=== PATIENT | male | born 1960 | race Two or more races ===

== ENCOUNTER 2024-08-09 13:46 | Emergency (ER) | payer OTHER, SELFPAY ==
--- NOTE | ~2024-08-09 | XR_ITS ---
XR chest 1V portable Ordering provider: Camden Dejesus MD History: 64 years Male with . SVT, PALPITATIONS, TACHYCARDIA, HX SC . Comparison: None. FINDINGS: MEDIASTINUM: The cardiac silhouette is not enlarged. Congestive wilda. LUNGS: No infiltrates, effusions or pneumothorax. Interstitial changes seen bilaterally more on the l eft side. OTHER: No free air under the diaphragm. Degenerative changes of the spine. IMPRESSION: No definite acute cardiopulmonary pathology. Reviewed, dictated and finalized at location A. [employer]
[2024-08-09 13:46] VITALS: BP 148/84; PULSE 85; RESP 18; TEMP 36.6; O2SAT 98
--- NOTE | 2024-08-09 14:19 | ECG_ITS ---
Test Date: 2024-08-09 13:52:23 Measurements Intervals [place] Rate: 85 P: 209 [place]: 146 QRS: -45 QRSD: 86 T: 113 QT: 365 QTc: 435 Interpretive Statements SINUS RHYTHM WITH FIRST DEGREE AV BLOCK LEFT AXIS DEVIATION CANNOT R/O SEPTAL INFARCT, AGE INDETERMINATE INFERIOR INFARCT, AGE INDETERMINATE ST-T WAVE ABNORMALITY IN [facility] LATERAL LEADS- CONSIDER ISCHEMIA BASELINE ARTIFACT- I, II, III, AVR, AVL, AVF, V1, V4-V6 ABNORMAL ECG No previous ECG available for comparison Electronically Signed On 08-09-2024 14:27:46 [employer] by Cj Parker D.O.
--- NOTE | 2024-08-09 14:40 | ED_ITS ---
HPI - General Adult General Chief complaint: Arrhythmia/Palpitations Stated complaint: Resolved SVT History of Present Illness HPI narrative: 64-year-old male present to the emergency department for evaluation for episode rapid heart rate. Patient is a long-distance dedicated local truck driver and is from the [facility]. Patient is driving from [place] to [place]. Patient states while he was driving he had onset of rapid heart rate and did have some chest pressure with this. Patient did call EMS and when EMS arrived to scene they found his heart rate was in the 180s. And was in SVT. Patient was treated with 6 of Adenocard and patient did return back to normal sinus rhythm. Patient reports as soon as his heart rate decreased he had no more chest pressure or chest tightness. Patient denies any complaints in the emergency department. Patient does have history of type 2 diabetes and does have a prior history an [place] in 2012 when he to stents. Patient reports last year he did have a stress test that he passed. Related Data Allergies Allergy/AdvReac Type Severity Reaction Status Date / Time codeine AdvReac Itching Verified 08/09/24 13:53 Review of Systems Review of Systems: All systems reviewed & are unremarkable except as noted in HPI and below Exam Narrative: APPEARANCE: Well appearing, no pain, no distress, well-nourished. HEAD: normocephalic, atraumatic. EYES: PERRLA/EOMI, conjunctivae clear. NOSE: Normal no drainage EARS:TMS clear with good light reflex. THROAT: Pharynx clear, no exudate. NECK: Supple. No adenopathy, no masses. RESPIRATORY: Airway patent, respirations nonlabored. Clear to auscultation bilaterally, no rales, rhonchi, wheezing. CARDIOVASCULAR: Regular rate and rhythm without murmurs rubs or gallops. ABDOMINAL: Soft, nontender, nondistended, normal bowel sounds MUSCULOSKELETAL: Moves all extremities. Strength/ROM intact, No edema, No calf tenderness. NEURO: Alert. Cranial nerves II through XII intact. Good gait. Good coordination SKIN: Warm, dry. Normal Color Course Vital Signs Vital signs: Vital Signs Temperature 97.9 F 08/09/24 13:46 Pulse Rate 85 08/09/24 13:46 Respiratory Rate 18 08/09/24 13:46 Blood Pressure 148/84 H 08/09/24 13:46 Pulse Oximetry 98 08/09/24 13:46 Oxygen Delivery Room Air 08/09/24 13:46 Temperature 98 F 08/09/24 16:00 Pulse Rate 71 08/09/24 16:00 Respiratory Rate 16 08/09/24 16:00 Blood Pressure 138/88 08/09/24 16:00 Pulse Oximetry 98 08/09/24 16:00 Oxygen Delivery Room Air 08/09/24 13:46 Medical Decision Making MDM Narrative Medical decision making narrative: 64-year-old male presenting to the emergency department for evaluation for episode of rapid heart rate which was found to be SVT. Patient was treated in the field and upon arrival emergency department patient had no complaints. Patient is afebrile with no leukocytosis and hemoglobin of 16.1, INR 0.9, no a cute abnormalities on the CMP chest x-ray shows no acute cardiopulmonary abnormality. Patient has remained in normal sinus rhythm since arrival to the emergency department. Patient denies any chest pain or shortness of breath. Patient was encouraged of close follow-up with his primary care physician. All questions concerns were addressed. Differential Diagnosis Differential Diagnosis: ACS, mi, SVT, AFib Vital Signs Vital Signs: Vital Signs Temperature 97.9 F 08/09/24 13:46 Pulse Rate 85 08/09/24 13:46 Respiratory Rate 18 08/09/24 13:46 Blood Pressure 148/84 H 08/09/24 13:46 Pulse Oximetry 98 08/09/24 13:46 Oxygen Delivery Room Air 08/09/24 13:46 Temperature 98 F 08/09/24 16:00 Pulse Rate 71 08/09/24 16:00 Respiratory Rate 16 08/09/24 16:00 Blood Pressure 138/88 08/09/24 16:00 Pulse Oximetry 98 08/09/24 16:00 Oxygen Delivery Room Air 08/09/24 13:46 Lab Data Lab results reviewed: Yes I reviewed the patient's lab results. 08/09/24 14:56 08/09/24 14:56 Labs: Lab Results 08/09/24 Range/Units 14:56 WBC 6.6 (4.5-10.0) K/mm3 RBC 5.05 (4.6-6.20) M/mm3 Hgb 16.1 (14.0-18.0) g/dL Hct 46.9 (42.0-52.0) % MCV 92.9 (80-100) fl MCH 31.9 (26-34) pg MCHC 34.3 (32-36) g/dl RDW 13.0 (11.5-14.5) % Plt Count 180 (150-375) k/mm3 MPV 9.6 (7.4-10.4) fl Immature Gran % (Auto) 0.5 (0-0.5) % Neut % (Auto) 63.1 (45.5-73.1) % Lymph % (Auto) 27.8 (18.3-44.2) % [place] % (Auto) 7.5 (2.6-8.5) % Eos % (Auto) 0.8 (0-4.4) % Baso % (Auto) 0.3 (0.2-1.2) % Lymph # (Auto) 1.84 (0.9-3.2) K/mm3 [place] # (Auto) 0.5 (0.1-0.6) K/mm3 Eos # (Auto) 0.1 (0-0.3) K/mm3 Baso # (Auto) 0.0 (0.0-0.1) K/mm3 Abs Immat Gran (auto) 0.03 (0.00-0.031) K/mm3 Absolute Neuts (auto) 4.2 (1.3-6.7) K/mm3 Absolute Nucleated RBC 0.000 (0.0-0.012) K/mm3 Nucleated RBC % 0.0 (0.0-0.2) % PT 13.1 (11.1-14.7) Seconds INR 0.9 APTT 26.6 (22.3-36.8) Seconds Sodium 139 (137-145) mmol/L Potassium 4.5 (3.4-5.0) mmol/L Chloride 103 (98-107) mmol/L Carbon Dioxide 27 (22-30) mmol/L Anion Gap 9 (4-12) mmol/L BUN 15 (9-20) mg/dL Creatinine 0.70 (0.7-1.3) mg/dL Estim Creat Clear Calc 114 ml/min Estimated GFR > 60 (59 - ) Glucose 149 H (65-110) mg/dL Calcium 9.2 (8.4-10.2) mg/dL Total Bilirubin 1.1 (0.2-1.3) mg/dL AST 22 (17-59) U/L ALT 20 (6-50) U/L Alkaline Phosphatase 77 (38-126) U/L Total Protein 8.0 (6.3-8.2) g/dL Albumin 4.5 (3.5-5.1) g/dL Imaging Data Radiologist's impression: Impressions Chest X-Ray 08/09/24 14:42 IMPRESSION: No definite acute cardiopulmonary pathology. Discharge Plan Discharge Clinical Impression: Palpitations, Supraventricular tachycardia Patient Disposition: Home, Self-Care Condition: Stable Instructions: Antibiotic Form, Supraventricular Tachycardia (ED) Additional Instructions: Avoid caffeine, drink plenty fluids. Have close follow-up with your primary care physician. If you have any worsening symptoms then please call or return to the emergency department. Follow-up/Referrals: UNKNOWN,DOCTOR [Primary Care Provider] -
[2024-08-09 15:12] LABS: Basophils Percent Auto 0.3 % (0.2-1.2); Eosinophils Absolute Auto 0.1 K/mm3 (0-0.3); Eosinophils Percent Auto 0.8 % (0-4.4); Hematocrit 46.9 % (42.0-52.0); Hemoglobin 16.1 g/dL (14.0-18.0); Immature Granulocyte Absolute 0.03 K/mm3 (0.00-0.031); Immature Granulocyte Percent A 0.5 % (0-0.5); Lymphocytes Absolute Auto 1.84 K/mm3 (0.9-3.2); Lymphocytes Percent Auto 27.8 % (18.3-44.2); Mean Corpuscular HGB Conc 34.3 g/dl (32-36); Mean Corpuscular Hemoglobin 31.9 pg (26-34); Mean Corpuscular Volume 92.9 fl (80-100); Mean Platelet Volume 9.6 fl (7.4-10.4); Monocytes Absolute Auto 0.5 K/mm3 (0.1-0.6); Monocytes Percent Auto 7.5 % (2.6-8.5); Neutrophils Absolute Auto 4.2 K/mm3 (1.3-6.7); Neutrophils Percent Auto 63.1 % (45.5-73.1); Platelet Count Result 180 k/mm3 (150-375); Red Blood Count 5.05 M/mm3 (4.6-6.20); White Blood Count 6.6 K/mm3 (4.5-10.0)
[2024-08-09 15:19] VITALS: BP 138/87; PULSE 77; RESP 18; O2SAT 95
[2024-08-09 15:23] LABS: INR 0.9; Prothrombin Time 13.1 Seconds (11.1-14.7)
[2024-08-09 15:24] LABS: Partial Thromboplastin Time 26.6 Seconds (22.3-36.8)
[2024-08-09 15:26] LABS: Alanine Aminotransferase 20 U/L (6-50); Albumin Level 4.5 g/dL (3.5-5.1); Alkaline Phosphatase 77 U/L (38-126); Anion Gap 9 mmol/L (4-12); Aspartate Amino Transferase 22 U/L (17-59); Bilirubin,Total 1.1 mg/dL (0.2-1.3); Blood Urea Nitrogen 15 mg/dL (9-20); Calcium 9.2 mg/dL (8.4-10.2); Carbon Dioxide 27 mmol/L (22-30); Chloride 103 mmol/L (98-107); Estimated CRCL calculation 114 ml/min; Estimated Glomerular Filt Rate > 60; Glucose 149 mg/dL (65-110); Potassium 4.5 mmol/L (3.4-5.0); Sodium 139 mmol/L (137-145)
[2024-08-09 16:00] VITALS: BP 138/88; PULSE 71; RESP 16; TEMP 36.6; O2SAT 98
== END 2024-08-09 16:14 | disposition home or self-care (01) ==
PROVIDERS: Emergency Provider Emergency Medicine
DX: R00.2 Palpitations (principal); I47.10 Supraventricular tachycardia, unspecified; R94.31 Abnormal electrocardiogram [ECG] [EKG]
CPT/HCPCS: 36415; 71045; 80053; 85025; 85610; 85730; 93005; 99283